=== PATIENT | male | born 1935 | race Caucasian/White ===

== ENCOUNTER 2023-05-28 15:09 | Outpatient (CLI) | payer MEDICARE | END 2023-05-28 15:10 | disposition home or self-care (01) | LOC: CSHMRI 15:09 | PROVIDERS: ATTEND Psychiatry & Neurology Neurology | DX: R41.3 Other amnesia (principal); I67.89 Other cerebrovascular disease; G31.89 Other specified degenerative diseases of nervous system; G93.9 Disorder of brain, unspecified | CPT/HCPCS: 70551 ==

== ENCOUNTER 2023-07-15 09:32 | Outpatient (CLI) | payer MEDICARE | END 2023-07-15 09:33 | disposition home or self-care (01) | LOC: CSHMRI 09:32 | PROVIDERS: ATTEND Psychiatry & Neurology Neurology | DX: M48.061 Spinal stenosis, lumbar region without neurogenic claudication (principal); M47.816 Spondylosis without myelopathy or radiculopathy, lumbar region; G95.89 Other specified diseases of spinal cord | CPT/HCPCS: 72148 ==

== ENCOUNTER 2023-07-15 10:31 | Emergency (ER) | payer MEDICARE ==
[2023-07-15 11:13] LABS: ALT (SGPT) 23 U/L (8-55); AST (SGOT) 24 U/L (5-34); Albumin 3.5 g/dL (3.4-4.8); Alkaline Phosphatase 153 U/L (40-110); Anion Gap 17 mmol/L (10-20); BUN (Urea Nitrogen) 27 mg/dL (8.4-25.7); Bilirubin, Total 0.7 mg/dL (0.2-1.2); Calc. Creatinine Clearance 0 mL/min (70-130); Calcium 9.1 mg/dL (7.8-10.44); Carbon Dioxide 18 mmol/L (23-31); Chloride 110 mmol/L (98-107); Estimated GFR 46; Globulin 3.2 g/dL (2.4-3.5); Glucose 142 mg/dL (83-110); Potassium 4.2 mmol/L (3.5-5.1); Protein, Total 6.7 g/dL (5.8-8.1); Sodium 141 mmol/L (136-145)
[2023-07-15 11:26] LABS: #Monocytes 0.8 10x3/uL (0.0-1.1); #Neutrophils 3.7 10x3/uL (1.5-8.4); %Basophils 0.7 % (0.0-2.0); %Eosinophils 0.7 % (0.0-6.0); %Lymphocytes 24.8 % (18.0-47.0); %Monocytes 13.3 % (0.0-10.0); %Neutrophils 60.2 % (40.0-75.0); Hematocrit 35.6 % (38.8-50.0); Hemoglobin 11.6 g/dL (13.5-17.5); Mean Corpuscular HGB CONC 32.6 g/dL (32.0-36.0); Mean Corpuscular Hemoglobin 34.7 pg (27.0-33.0); Mean Corpuscular Volume 106.6 fl (81.2-95.1); Mean Platelet Volume 10.6 fl (7.4-10.4); Platelet Count 217 10x3/uL (150-450); RBC Distribution Width 13.1 % (11.5-14.5); Red Blood Cell (RBC) Count 3.34 10x6/uL (4.32-5.72); White Blood Cell (WBC) Count 6.1 10x3/uL (3.5-10.5)
== END 2023-07-15 12:14 | disposition home or self-care (01) ==
LOC: CSHERS 10:31
DX: I95.9 Hypotension, unspecified (principal); R55 Syncope and collapse
CPT/HCPCS: 36415; 71045; 80053; 85025; 93005; 93010

== ENCOUNTER 2023-09-13 10:48 | Emergency (ER) | payer MEDICARE ==
[~2023-09-13 10:48] MED LIST: Iopamidol 300 61% 100 ML VIAL FS ONE
[2023-09-13] MEDS ORDERED: Ondansetron PF 4 MG/2 ML Vial ONE (11:03)
[2023-09-13] MEDS ORDERED: Morphine 4 MG/ML VIAL ONE ×2 (11:03→13:51)
[2023-09-13 11:23] LABS: #Eosinphils 0.1 10x3/uL (0.0-0.5); #Monocytes 0.7 10x3/uL (0.0-1.1); #Neutrophils 3.2 10x3/uL (1.5-8.4); %Basophils 0.6 % (0.0-2.0); %Eosinophils 1.5 % (0.0-6.0); %Lymphocytes 21.9 % (18.0-47.0); %Monocytes 14.1 % (0.0-10.0); %Neutrophils 61.5 % (40.0-75.0); Hematocrit 31.6 % (38.8-50.0); Hemoglobin 10.1 g/dL (13.5-17.5); Mean Corpuscular Hemoglobin 33.6 pg (27.0-33.0); Mean Platelet Volume 10.6 fl (7.4-10.4); Platelet Count 204 10x3/uL (150-450); RBC Distribution Width 14.3 % (11.5-14.5); Red Blood Cell (RBC) Count 3.01 10x6/uL (4.32-5.72); White Blood Cell (WBC) Count 5.2 10x3/uL (3.5-10.5)
[2023-09-13 11:39] LABS: ALT (SGPT) 29 U/L (8-55); AST (SGOT) 23 U/L (5-34); Albumin 3.1 g/dL (3.4-4.8); Alkaline Phosphatase 169 U/L (40-110); Anion Gap 13 mmol/L (10-20); BUN (Urea Nitrogen) 24 mg/dL (8.4-25.7); Bilirubin, Total 0.8 mg/dL (0.2-1.2); Calc. Creatinine Clearance 0 mL/min (70-130); Calcium 8.2 mg/dL (7.8-10.44); Carbon Dioxide 25 mmol/L (23-31); Chloride 108 mmol/L (98-107); Estimated GFR 45; Globulin 2.5 g/dL (2.4-3.5); Glucose 120 mg/dL (83-110); Lipase 22 U/L (8-78); Magnesium 2.1 mg/dL (1.6-2.6); Potassium 4.6 mmol/L (3.5-5.1); Protein, Total 5.6 g/dL (5.8-8.1); Sodium 141 mmol/L (136-145)
[2023-09-13 11:42] LABS: Troponin I 0.017 ng/mL (< 0.028)
== END 2023-09-13 17:44 ==
LOC: CSHERS 10:48
DX: C78.7 Secondary malignant neoplasm of liver and intrahepatic bile duct (principal); K62.89 Other specified diseases of anus and rectum
CPT/HCPCS: 36415; 71045; 74177; 80053; 83690; 83735; 84484; 85025; 93005; 96374; 96375; 96376; J2270; J2405

== ENCOUNTER 2023-10-13 12:41 | Emergency (ER) | payer MEDICARE ==
[2023-10-13] MEDS ORDERED: HYDROcodone/Acetaminophen 5/325 mg Tablet ONE ×2 (13:10→19:30)
[2023-10-13 15:20] LABS: #Eosinphils 0.1 10x3/uL (0.0-0.5); #Monocytes 0.7 10x3/uL (0.0-1.1); #Neutrophils 5.8 10x3/uL (1.5-8.4); %Basophils 0.5 % (0.0-2.0); %Eosinophils 0.8 % (0.0-6.0); %Lymphocytes 12.6 % (18.0-47.0); %Monocytes 9.7 % (0.0-10.0); %Neutrophils 76.1 % (40.0-75.0); Hematocrit 30.8 % (38.8-50.0); Hemoglobin 10.5 g/dL (13.5-17.5); Mean Corpuscular HGB CONC 34.1 g/dL (32.0-36.0); Mean Corpuscular Hemoglobin 35.1 pg (27.0-33.0); Mean Platelet Volume 11.4 fl (7.4-10.4); Platelet Count 191 10x3/uL (150-450); RBC Distribution Width 15.8 % (11.5-14.5); Red Blood Cell (RBC) Count 2.99 10x6/uL (4.32-5.72); White Blood Cell (WBC) Count 7.6 10x3/uL (3.5-10.5)
[2023-10-13 16:03] LABS: ALT (SGPT) 25 U/L (8-55); AST (SGOT) 29 U/L (5-34); Albumin 3.1 g/dL (3.4-4.8); Alkaline Phosphatase 141 U/L (40-110); Anion Gap 13 mmol/L (10-20); BUN (Urea Nitrogen) 22 mg/dL (8.4-25.7); Calc. Creatinine Clearance 0 mL/min (70-130); Calcium 8.1 mg/dL (7.8-10.44); Carbon Dioxide 21 mmol/L (23-31); Chloride 107 mmol/L (98-107); Estimated GFR 55; Globulin 2.9 g/dL (2.4-3.5); Glucose 97 mg/dL (83-110); Potassium 4.8 mmol/L (3.5-5.1); Sodium 136 mmol/L (136-145)
== END 2023-10-13 20:37 | disposition short-term general hospital (02) ==
LOC: CSHERS 12:41
DX: S12.100A Unspecified displaced fracture of second cervical vertebra, initial encounter for closed fracture (principal); S22.43XA Multiple fractures of ribs, bilateral, initial encounter for closed fracture; K21.9 Gastro-esophageal reflux disease without esophagitis; Z79.899 Other long term (current) drug therapy; W06.XXXA Fall from bed, initial encounter
CPT/HCPCS: 70450; 70498; 71045; 71250; 72125; 80053; 85025; 93005